=== PATIENT | female | born 1995 | race Two or more races ===

== ENCOUNTER 2022-07-15 13:22 | Emergency (ER) | payer OTHER ==
[~2022-07-15] VITALS: Ht 154.9 cm; Wt 76.2 kg
[~2022-07-15 13:22] MED LIST: CEPHALEXIN500 MG PO
[2022-07-15] MEDS ORDERED: PRENATAL + DHA1 EAC1 (14:23)
== END 2022-07-15 17:56 | disposition home or self-care (01) ==
LOC: ER 13:22
DX: O20.9 Hemorrhage in early pregnancy, unspecified (principal); Z3A.01 Less than 8 weeks gestation of pregnancy

== ENCOUNTER 2022-09-03 10:05 | Outpatient (CLI) | payer OTHER ==
[~2022-09-03 10:05] MED LIST changes: +PRENATAL + DHA1 EAC1
== END 2022-09-03 11:36 | disposition home or self-care (01) ==
LOC: PRENATAL 10:05
PROVIDERS: ATTEND Obstetrics & Gynecology Maternal & Fetal Medicine
DX: O36.80X0 Pregnancy with inconclusive fetal viability, not applicable or unspecified (principal); O34.219 Maternal care for unspecified type scar from previous cesarean delivery; O09.219 Supervision of pregnancy with history of pre-term labor, unspecified trimester; Z3A.13 13 weeks gestation of pregnancy

== ENCOUNTER 2022-09-08 16:24 | Emergency (ER) | payer OTHER ==
[~2022-09-08] VITALS: Ht 154.9 cm; Wt 83.9 kg
== END 2022-09-08 21:01 | disposition home or self-care (01) ==
LOC: ER 16:24
DX: O26.92 Pregnancy related conditions, unspecified, second trimester (principal); Z3A.14 14 weeks gestation of pregnancy

== ENCOUNTER 2022-10-27 08:48 | Outpatient (CLI) | payer OTHER | END 2022-10-27 09:55 | disposition home or self-care (01) | LOC: PRENATAL 08:48 | PROVIDERS: ATTEND Obstetrics & Gynecology Maternal & Fetal Medicine | DX: O35.9XX0 Maternal care for (suspected) fetal abnormality and damage, unspecified, not applicable or unspecified (principal); O35.3XX0 Maternal care for (suspected) damage to fetus from viral disease in mother, not applicable or unspecified; O09.219 Supervision of pregnancy with history of pre-term labor, unspecified trimester; O34.219 Maternal care for unspecified type scar from previous cesarean delivery; Z3A.21 21 weeks gestation of pregnancy ==

== ENCOUNTER 2023-01-12 10:18 | Outpatient (CLI) | payer OTHER | END 2023-01-12 11:16 | disposition home or self-care (01) | LOC: PRENATAL 10:18 | PROVIDERS: ATTEND Obstetrics & Gynecology Maternal & Fetal Medicine | DX: O26.849 Uterine size-date discrepancy, unspecified trimester (principal); O36.8199 Decreased fetal movements, unspecified trimester, other fetus; O35.9XX0 Maternal care for (suspected) fetal abnormality and damage, unspecified, not applicable or unspecified; Z3A.32 32 weeks gestation of pregnancy ==

== ENCOUNTER 2023-06-11 00:29 | Emergency (ER) | payer OTHER ==
[~2023-06-11] VITALS: Ht 152.4 cm; Wt 77.6 kg
[2023-06-11 02:15] LABS: HEMATOCRIT 37.1 % (36.0-45.00); HEMOGLOBIN 12.3 g/dL (12.0-15.00); MEAN CELL VOLUME 85.2 fL (80.00-100.00); MEAN CORPUSCULAR HEMOGLOBIN 28.2 pg (27.00-32.0); MEAN CORPUSCULAR HGB CONC 33.1 g/dl (32.0-36.0); PLATELET COUNT 318 K/uL (150-450); RED BLOOD COUNT 4.36 M/uL (4.00-6.00)
[2023-06-11 02:16] LABS: PH,URINE 5.5 (5.0-8.0); URINE APPEARANCE Clear; URINE BILIRRUBIN Negative (NEGATIVE); URINE BLOOD Negative; URINE COLOR Yellow; URINE GLUCOSE Negative (NEGATIVE); URINE LEUKOCYTE Negative; URINE NITRATE Negative; URINE PROTEIN Negative (NEGATIVE); URINE UROBILINOGEN 0.2 E.U./dl
[2023-06-11 02:20] LABS: URINE BACTERIA 313.7 uL (0.0-1933); URINE EPITHELIAL CELLS 64.9 uL (0.0-38.8); URINE RBC 10.9 uL (0.0-20.8); URINE WBC 8.9 uL (0.0-23.2)
[2023-06-11 02:31] LABS: RED CELL DISTRIBUTION WIDTH 16.3 % (11.5-14.5)
[2023-06-11 03:01] LABS: ALBUMIN 3.5 gm/dL (3.4-5.0); BILIRUBIN TOTAL 0.22 mg/dL (0.3-1.2); CALCIUM 8.8 mg/dL (8.5-10.1); CREATININE SERUM 0.83 mg/dL (0.55-1.02); GFR 81.86; GLOBULINA 3.9 G/DL (2.4-3.5); POTASSIUM 3.47 mEq/L (3.5-5.1); TOTAL PROTEIN 7.4 gm/dL (6.4-8.2)
[2023-06-11] MEDS ORDERED: ONDANSETRON ODT4 MG PO (04:27)
[2023-06-11] MEDS ORDERED: PEPCID40 MG PO (04:27)
== END 2023-06-11 04:35 | disposition home or self-care (01) ==
LOC: ER 00:29
PROVIDERS: General Practice
DX: R11.0 Nausea (principal)

== ENCOUNTER 2023-06-16 18:50 | Emergency (ER) | payer OTHER ==
[~2023-06-16] VITALS: Ht 154.9 cm; Wt 79.4 kg
[~2023-06-16 18:50] MED LIST changes: +ONDANSETRON ODT4 MG PO; +PEPCID40 MG PO
[2023-06-16 20:57] LABS: HEMATOCRIT 43.2 % (36.0-45.00); HEMOGLOBIN 14.4 g/dL (12.0-15.00); MEAN CELL VOLUME 85.6 fL (80.00-100.00); MEAN CORPUSCULAR HEMOGLOBIN 28.4 pg (27.00-32.0); MEAN CORPUSCULAR HGB CONC 33.2 g/dl (32.0-36.0); PLATELET COUNT 387 K/uL (150-450); RED BLOOD COUNT 5.05 M/uL (4.00-6.00); RED CELL DISTRIBUTION WIDTH 15.6 % (11.5-14.5)
[2023-06-16 21:46] LABS: CALCIUM 9.5 mg/dL (8.5-10.1); CREATININE SERUM 0.86 mg/dL (0.55-1.02); GFR 78.57; POTASSIUM 3.78 mEq/L (3.5-5.1)
[2023-06-16 23:05] LABS: PH,URINE 5.5 (5.0-8.0); URINE APPEARANCE Cloudy; URINE BILIRRUBIN Negative (NEGATIVE); URINE BLOOD Negative; URINE COLOR Yellow; URINE GLUCOSE Negative (NEGATIVE); URINE LEUKOCYTE Negative; URINE NITRATE Negative; URINE PROTEIN Negative (NEGATIVE)
[2023-06-16 23:09] LABS: URINE BACTERIA 1398.3 uL (0.0-1933); URINE EPITHELIAL CELLS 84.5 uL (0.0-38.8); URINE RBC 4.4 uL (0.0-20.8); URINE WBC 19.1 uL (0.0-23.2)
[2023-06-16] MEDS ORDERED: ZOFRAN8 MG PO (23:45)
[2023-06-16] MEDS ORDERED: PEPCID AC20 MG PO (23:45)
== END 2023-06-16 23:48 | disposition home or self-care (01) ==
LOC: ER 18:50
PROVIDERS: General Practice
DX: O26.891 Other specified pregnancy related conditions, first trimester (principal); B34.8 Other viral infections of unspecified site; Z20.822 Contact with and (suspected) exposure to COVID-19

== ENCOUNTER 2023-08-04 15:56 | Emergency (ER) | payer OTHER ==
[~2023-08-04] VITALS: Ht 154.9 cm; Wt 81.6 kg
[~2023-08-04 15:56] MED LIST changes: +PEPCID AC20 MG PO; +ZOFRAN8 MG PO
[2023-08-04 18:46] LABS: URINE APPEARANCE Cloudy; URINE BILIRRUBIN Negative (NEGATIVE); URINE BLOOD Large; URINE COLOR Yellow; URINE GLUCOSE Negative (NEGATIVE); URINE LEUKOCYTE Negative; URINE NITRATE Negative; URINE PROTEIN Negative (NEGATIVE); URINE UROBILINOGEN 0.2 E.U./dl
[2023-08-04 18:56] LABS: HEMATOCRIT 38.4 % (36.0-45.00); HEMOGLOBIN 13.5 g/dL (12.0-15.00); MEAN CELL VOLUME 87.1 fL (80.00-100.00); MEAN CORPUSCULAR HEMOGLOBIN 30.7 pg (27.00-32.0); MEAN CORPUSCULAR HGB CONC 35.2 g/dl (32.0-36.0); PLATELET COUNT 341 K/uL (150-450); RED BLOOD COUNT 4.41 M/uL (4.00-6.00); RED CELL DISTRIBUTION WIDTH 13.5 % (11.5-14.5)
[2023-08-04 19:04] LABS: CALCIUM 9.4 mg/dL (8.5-10.1); CREATININE SERUM 0.53 mg/dL (0.55-1.02); GFR 137.36; INR < 0.93; PARTIAL THROMBOPLASTIN TIME 29.3 SECONDS (22.0-34.0); POTASSIUM 3.52 mEq/L (3.5-5.1); PROTHROMBIN TIME 9.8 SECONDS (9.0-11.5)
[2023-08-04 19:33] LABS: URINE RBC 1.8 uL (0.0-20.8); URINE YEAST FEW /hpf
[2023-08-04] MEDS ORDERED: DUI500 PO (21:14)
== END 2023-08-04 21:26 | disposition home or self-care (01) ==
LOC: ER 15:56
PROVIDERS: General Practice
DX: O23.41 Unspecified infection of urinary tract in pregnancy, first trimester (principal); N39.0 Urinary tract infection, site not specified; Z3A.13 13 weeks gestation of pregnancy; O20.9 Hemorrhage in early pregnancy, unspecified

== ENCOUNTER 2023-08-09 15:14 | Outpatient (CLI) | payer OTHER ==
[~2023-08-09 15:14] MED LIST changes: +DUI500 PO
== END 2023-08-09 15:18 | disposition home or self-care (01) ==
LOC: PRENATAL 15:14
PROVIDERS: ATTEND Obstetrics & Gynecology Maternal & Fetal Medicine
DX: O36.80X0 Pregnancy with inconclusive fetal viability, not applicable or unspecified (principal); O34.219 Maternal care for unspecified type scar from previous cesarean delivery; O09.219 Supervision of pregnancy with history of pre-term labor, unspecified trimester; Z36.82 Encounter for antenatal screening for nuchal translucency; O98.919 Unspecified maternal infectious and parasitic disease complicating pregnancy, unspecified trimester; Z3A.13 13 weeks gestation of pregnancy

== ENCOUNTER 2023-09-29 16:05 | Outpatient (CLI) | payer OTHER | END 2023-09-29 16:07 | disposition home or self-care (01) | LOC: PRENATAL 16:05 | PROVIDERS: ATTEND Obstetrics & Gynecology Maternal & Fetal Medicine | DX: O35.9XX0 Maternal care for (suspected) fetal abnormality and damage, unspecified, not applicable or unspecified (principal); O35.3XX0 Maternal care for (suspected) damage to fetus from viral disease in mother, not applicable or unspecified; O44.00 Complete placenta previa NOS or without hemorrhage, unspecified trimester; O34.219 Maternal care for unspecified type scar from previous cesarean delivery; O09.219 Supervision of pregnancy with history of pre-term labor, unspecified trimester; O98.919 Unspecified maternal infectious and parasitic disease complicating pregnancy, unspecified trimester; Z3A.20 20 weeks gestation of pregnancy ==

== ENCOUNTER 2023-11-06 18:18 | Outpatient (CLI) | payer OTHER ==
[~2023-11-06] VITALS: Ht 154.9 cm; Wt 93.4 kg
[2023-11-06] MEDS ORDERED: RINGERS SOLUTION,LACTATED 1,000 ML IV SCH (18:30)
[2023-11-06 18:54] LABS: HEMATOCRIT 33.6 % (36.0-45.00); HEMOGLOBIN 11.4 g/dL (12.0-15.00); MEAN CELL VOLUME 82.9 fL (80.00-100.00); MEAN CORPUSCULAR HEMOGLOBIN 28.1 pg (27.00-32.0); MEAN CORPUSCULAR HGB CONC 33.9 g/dl (32.0-36.0); PLATELET COUNT 331 K/uL (150-450); RED BLOOD COUNT 4.05 M/uL (4.00-6.00)
[2023-11-06 18:56] LABS: PH,URINE 5.5 (5.0-8.0); URINE APPEARANCE Cloudy; URINE BILIRRUBIN Negative (NEGATIVE); URINE BLOOD Negative; URINE COLOR Dark Yellow; URINE GLUCOSE Negative (NEGATIVE); URINE LEUKOCYTE Negative; URINE NITRATE Negative; URINE PROTEIN Trace (NEGATIVE)
[2023-11-06 18:59] LABS: URINE BACTERIA 2988.5 uL (0.0-1933); URINE EPITHELIAL CELLS 145.2 uL (0.0-38.8); URINE RBC 11.4 uL (0.0-20.8); URINE WBC 8.5 uL (0.0-23.2)
[2023-11-06 19:27] LABS: ALBUMIN 2.6 gm/dL (3.4-5.0); BILIRUBIN TOTAL 0.31 mg/dL (0.3-1.2); CREATININE SERUM 0.51 mg/dL (0.55-1.02); GFR 143.59; GLOBULINA 4.1 G/DL (2.4-3.5); POTASSIUM 3.99 mEq/L (3.5-5.1); TOTAL PROTEIN 6.7 gm/dL (6.4-8.2)
[2023-11-06] MEDS ORDERED: GUAIFENESIN 200 MG/10 ML BLIST.PACK PO SCH (20:00)
[2023-11-06] MEDS ORDERED: ** NF ** (PROGESTERONA 200 MG) VAG SCH (21:30)
[2023-11-06] MEDS ORDERED: FAMOtidine 20 MG TABLET PO SCH (23:45)
[2023-11-07] MEDS ORDERED: ACETAMINOPHEN 500 MG GEL..CAP PO PRN (05:30)
[2023-11-07] MEDS ORDERED: METHYLERGONOVINE MALEATE 0.2 MG/ML AMPUL ONE (11:34)
[2023-11-07] MEDS ORDERED: PATIENTS OWN MEDICATION (MEDICAMENTO EN PISO NEVERA) VAG SCH (21:00)
== END 2023-11-07 11:24 | disposition home or self-care (01) ==
LOC: OBS/DEL 18:18
PROVIDERS: Specialist; ATTEND Obstetrics & Gynecology
DX: O26.892 Other specified pregnancy related conditions, second trimester (principal); Z3A.26 26 weeks gestation of pregnancy